=== PATIENT | male | born 1960 | race Caucasian/White ===

== ENCOUNTER 2021-09-29 04:00 | Observation (INO) ==
[2021-09-29] MEDS ORDERED: Ondansetron 4 MG/2 ML VIAL IVP ONE (04:13)
[2021-09-29] MEDS ORDERED: 0.9 % Sodium Chloride 1,000 ML IVC ONE (04:13)
[2021-09-29] MEDS ORDERED: Isovue-370 500 ML BOTTLE IVP ONE (04:41)
[2021-09-29 04:54] LABS: Basophils # 0.1 K/mcL (0.0-0.2); Basophils % 0.7 %; Eosinophils # 0.2 K/mcL (0.0-0.6); Eosinophils % 2.8 %; Hemoglobin 16.1 g/dL (12.9-16.9); Immature Granulocytes % 0.5 % (0-4); Lymphocytes # 1.4 K/mcL (0.6-4.6); Lymphocytes % 18.3 %; Mean Corpuscular HGB Conc 33.5 g/dL (31.6-35.5); Mean Corpuscular Hemoglobin 33.1 pg (28.0-33.3); Mean Corpuscular Volume 98.8 fL (83.0-100.0); Mean Platelet Volume 10.2 fL (9.4-12.4); Monocytes # 0.7 K/mcL (0.0-1.3); Monocytes % 8.9 %; Neutrophils # 5.1 K/mcL (1.6-8.9); Platelet Count 279 K/mcL (140-400); Red Blood Count 4.86 M/mcL (4.19-5.50); Red Cell Distribution Width 12.7 % (11.5-14.5); Segmented Neutrophils % 68.8 %; White Blood Count 7.4 K/mcL (4.3-11.1)
[2021-09-29 05:12] LABS: Alanine Aminotransferase 15 Units/L (7-52); Alkaline Phosphatase 80 Units/L (34-104); Aspartate Amino Transferase 20 Units/L (13-39); BUN/Creatinine Ratio 6 (6-26); Bilirubin,Direct 0.1 mg/dL (0.0-0.2); Bilirubin,Indirect 0.5 mg/dL (0.0-1.0); Bilirubin,Total 0.6 mg/dL (0.3-1.0); Blood Urea Nitrogen 5 mg/dL (8-23); Calcium 9.4 mg/dL (8.6-10.3); Carbon Dioxide 22 mEq/L (23-29); Chloride 105 mEq/L (98-107); Glucose 110 mg/dL (70-105); Osmolality,Calculated 284 (280-300); Potassium 3.5 mEq/L (3.5-5.1); Sodium 138 mEq/L (136-145); Total Protein 7.1 g/dL (6.4-8.9); eGFR For African Americans > 60 (> 60); eGFR For Non-African Americans > 60 (> 60)
[2021-09-29 05:13] LABS: Albumin 4.1 g/dL (3.5-5.7); Albumin/Globulin Ratio 1.4 (1.1-2.2); Lipase 5 Units/L (11-82)
[2021-09-29] MEDS ORDERED: Dicyclomine 20 MG/2 ML AMPUL IM ONE (05:58)
[2021-09-29] MEDS ORDERED: Morphine Sulfate 2 MG/ML SYRINGE IVP ONE (06:12)
[2021-09-29] MEDS ORDERED: Ketorolac 30 MG/ML VIAL IVP PRN (06:12)
[2021-09-29] MEDS ORDERED: Naloxone 0.4 MG/ML INJ IVP PRN (08:37)
[2021-09-29] MEDS ORDERED: Ondansetron ODT 4 MG TAB.RAPDIS SL PRN (08:53)
[2021-09-29] MEDS ORDERED: Baclofen 10 MG TABLET PO PRN (09:52)
[2021-09-29] MEDS ORDERED: Albuterol 2.5 MG/3 ML NEBULIZER IH PRN (09:52)
[2021-09-29] MEDS: Gabapentin 400 MG CAPSULE PO SCH ×3 (12:21→19:49)
[2021-09-29] MEDS: Budesonide/Formoterol 160/4.5 1 PUFF INH IH SCH ×2 (12:21→19:35)
[2021-09-29] MEDS: Sennosides/Docusate Sodium TABLET PO SCH ×2 (12:24→19:50)
[2021-09-29] MEDS ORDERED: *HR* OxyCODONE/APAP 7.5/325 TABLET PO PRN (14:25)
[2021-09-29 15:08] LABS: Bilirubin,Urine Negative (Negative); Blood,Urine Negative (Negative); Clarity,Urine Clear (Clear); Color,Urine Yellow (Yellow); Glucose,Urine (UA) Normal (Normal); Ketones,Urine 20 mg/dL (Negative); Leukocyte Esterase,Urine Negative (Negative); Mucus,Urine Moderate per lpf (None-Few); Nitrite,Urine Negative (Negative); Protein,Urine 30 mg/dL (Neg-Trace); RBC,Urine 0-3 per hpf (0-3); Specific Gravity,Urine > 1.030 (1.010-1.025); Urobilinogen,Urine Normal (Normal); WBC,Urine 0-3 per hpf (0-3)
[2021-09-29] MEDS: *HR* Heparin 5,000 UNIT/ML VIAL SQ SCH ×2 (15:08→19:51)
[2021-09-29] MEDS: Fluticasone Propionate Nasal 50 MCG/SPRAY BOTTLE NS SCH (15:08)
[2021-09-29] MEDS: Nicotine 21 MG PATCH.TD24 TD SCH (15:09)
[2021-09-29] MEDS ORDERED: *HR* Labetalol 20 MG/4 ML SYRINGE IVP ONE (16:06)
[2021-09-29] MEDS: amLODIPine 5 MG TABLET PO SCH (16:16)
[2021-09-29] MEDS: cilostazoL 100 MG TABLET PO SCH (19:49)
[2021-09-29] MEDS ORDERED: traZODone 50 MG TABLET PO SCH (21:00)
[2021-09-29] MEDS ORDERED: Temazepam 15 MG CAPSULE PO SCH (21:00)
[2021-09-30 03:12] LABS: Basophils % 0.6 %; Eosinophils # 0.2 K/mcL (0.0-0.6); Hematocrit 43.9 % (37.5-50.1); Immature Granulocytes % 0.4 % (0-4); Lymphocytes # 1.5 K/mcL (0.6-4.6); Lymphocytes % 27.3 %; Mean Corpuscular HGB Conc 32.8 g/dL (31.6-35.5); Mean Corpuscular Hemoglobin 33.3 pg (28.0-33.3); Mean Corpuscular Volume 101.4 fL (83.0-100.0); Monocytes # 0.5 K/mcL (0.0-1.3); Monocytes % 9.9 %; Neutrophils # 3.2 K/mcL (1.6-8.9); Platelet Count 221 K/mcL (140-400); Red Blood Count 4.33 M/mcL (4.19-5.50); Red Cell Distribution Width 12.5 % (11.5-14.5); Segmented Neutrophils % 58.8 %; White Blood Count 5.4 K/mcL (4.3-11.1)
[2021-09-30 03:13] LABS: Hemoglobin 14.4 g/dL (12.9-16.9)
[2021-09-30 03:29] LABS: Alanine Aminotransferase 12 Units/L (7-52); Albumin 3.4 g/dL (3.5-5.7); Albumin/Globulin Ratio 1.5 (1.1-2.2); Alkaline Phosphatase 63 Units/L (34-104); Aspartate Amino Transferase 18 Units/L (13-39); BUN/Creatinine Ratio 9 (6-26); Bilirubin,Total 0.6 mg/dL (0.3-1.0); Blood Urea Nitrogen 7 mg/dL (8-23); Calcium 8.9 mg/dL (8.6-10.3); Carbon Dioxide 26 mEq/L (23-29); Chloride 107 mEq/L (98-107); Globulin 2.3 g/dL (2.4-3.5); Glucose 84 mg/dL (70-105); Osmolality,Calculated 285 (280-300); Potassium 3.4 mEq/L (3.5-5.1); Sodium 139 mEq/L (136-145); Total Protein 5.7 g/dL (6.4-8.9); eGFR For African Americans > 60 (> 60); eGFR For Non-African Americans > 60 (> 60)
[2021-09-30] MEDS: *HR* Heparin 5,000 UNIT/ML VIAL SQ SCH (04:57)
[2021-09-30] MEDS: Budesonide/Formoterol 160/4.5 1 PUFF INH IH SCH (07:39)
[2021-09-30] MEDS: Gabapentin 400 MG CAPSULE PO SCH (08:20)
[2021-09-30] MEDS: Sennosides/Docusate Sodium TABLET PO SCH (08:20)
[2021-09-30] MEDS: cilostazoL 100 MG TABLET PO SCH (08:20)
[2021-09-30] MEDS: Nicotine 21 MG PATCH.TD24 TD SCH (08:20)
[2021-09-30] MEDS: amLODIPine 5 MG TABLET PO SCH (08:21)
[2021-09-30] MEDS: Fluticasone Propionate Nasal 50 MCG/SPRAY BOTTLE NS SCH (08:21)
[2021-09-30 11:18] VITALS: BP 135/78; PULSE 95; TEMP 98.1; O2SAT 94
== END 2021-09-30 13:31 | disposition home or self-care (01) ==
LOC: EMEROOARM 04:00 → 3BNU 04:00
PROVIDERS: ADMIT Internal Medicine; ATTEND Internal Medicine

== ENCOUNTER 2022-03-07 10:11 | Inpatient (IN) ==
[~2022-03-07 10:11] MED LIST: Famotidine 20 MG/2 ML VIAL IVP ONE
[2022-03-07] MEDS ORDERED: CeFAZolin Syr 2,000MG/20 ML 2,000 MG/20 ML SYRINGE IVPB ONE (10:31)
[2022-03-07] MEDS ORDERED: Acetaminophen IV 1,000 MG/100 ML BAG IVPB ONE (10:44)
[2022-03-07] MEDS ORDERED: Ondansetron 4 MG/2 ML VIAL IVP PRN ×2 (10:44→18:10)
[2022-03-07] MEDS ORDERED: Ringers Solution, Lactated 1,000 ML IVC SCH (10:45)
[2022-03-07] MEDS ORDERED: Albuterol 2.5 MG/3 ML NEBULIZER IH PRN ×2 (10:45→18:10)
[2022-03-07] MEDS ORDERED: Ondansetron 4 MG/2 ML VIAL ONE (11:29)
[2022-03-07] MEDS ORDERED: *HR* HYDROMORPHONE 2 MG/ML VIAL ONE (11:29)
[2022-03-07] MEDS ORDERED: *HR* Rocuronium Bromide 50 MG/5 ML VIAL ONE (11:29)
[2022-03-07] MEDS ORDERED: Lidocaine -MPF 2% 5 ML VIAL ONE (11:29)
[2022-03-07] MEDS ORDERED: *HR* Phenylephrine 10 MG/ML VIAL ONE (11:29)
[2022-03-07] MEDS ORDERED: *HR* Propofol 200 MG/20 ML VIAL IVP ONE (11:29)
[2022-03-07] MEDS ORDERED: *HR* Midazolam HCl 2 MG/2 ML VIAL ONE (11:29)
[2022-03-07] MEDS ORDERED: *HR* Succinylcholine 200 MG/10 ML VIAL IVP ONE (11:29)
[2022-03-07] MEDS ORDERED: *HR* Remifentanil 2 MG VIAL IVP ONE (11:29)
[2022-03-07] MEDS ORDERED: Lidocaine HCL 4 ML Topical Solution (Laryng-O-Jet Kit Sterile Pak) TP ONE (11:29)
[2022-03-07] MEDS ORDERED: Vancomycin 1,000 MG, Sodium Chloride IRRigation 1,000 ML IR ONE (11:55)
[2022-03-07] MEDS ORDERED: Bupivacaine-MPF 0.25% 10 ML VIAL ONE (12:15)
[2022-03-07] MEDS ORDERED: Heparin 1,000 UNITS/500 mL 500 ML ONE (12:15)
[2022-03-07] MEDS ORDERED: Protamine Sulfate 50 MG/5 ML VIAL IVP ONE (12:15)
[2022-03-07] MEDS ORDERED: *HR* Heparin 5,000 UNIT/ML VIAL ONE (12:18)
[2022-03-07] MEDS ORDERED: Sugammadex Sodium 200 MG/2 ML VIAL IV ONE (12:22)
[2022-03-07] MEDS ORDERED: *HR* HYDROmorphone (PF) 1 MG/ML SYRINGE ONE (15:17)
[2022-03-07] MEDS: *HR* FentaNYL (PF) 100 MCG/2 ML VIAL IVP PRN ×4 (15:33→15:53)
[2022-03-07] MEDS ORDERED: Ketorolac 30 MG/ML VIAL IVP ONE (15:52)
[2022-03-07] MEDS ORDERED: *HR* HYDROmorphone (PF) 1 MG/ML SYRINGE IVP ONE (16:12)
[2022-03-07] MEDS ORDERED: *HR* Labetalol 20 MG/4 ML SYRINGE IVP ONE ×2 (16:48→16:50)
[2022-03-07] MEDS ORDERED: *HR* Labetalol 20 MG/4 ML SYRINGE IVP PRN (18:10)
[2022-03-07] MEDS ORDERED: 0.9 % Sodium Chloride 1,000 ML IVC SCH (18:10)
[2022-03-07] MEDS ORDERED: Acetaminophen 325 MG TABLET PO PRN (18:10)
[2022-03-07] MEDS ORDERED: Naloxone 0.4 MG/ML INJ IVP PRN (18:10)
[2022-03-07] MEDS ORDERED: Temazepam 15 MG CAPSULE PO PRN (18:15)
[2022-03-07] MEDS: *HR* OxyCODONE Immed Rel 5 MG TABLET PO PRN (18:20)
[2022-03-07] MEDS: *HR* Metoprolol 5 MG/5 ML VIAL IVP SCH ×2 (18:37→23:51)
[2022-03-07 18:49] LABS: Hematocrit 41.6 % (37.5-50.1); Hemoglobin 13.9 g/dL (12.9-16.9); Mean Corpuscular HGB Conc 33.4 g/dL (31.6-35.5); Mean Corpuscular Hemoglobin 33.6 pg (28.0-33.3); Mean Corpuscular Volume 100.5 fL (83.0-100.0); Mean Platelet Volume 9.6 fL (9.4-12.4); Platelet Count 234 K/mcL (140-400); Red Blood Count 4.14 M/mcL (4.19-5.50); Red Cell Distribution Width 13.2 % (11.5-14.5); White Blood Count 10.1 K/mcL (4.3-11.1)
[2022-03-07 18:57] LABS: Prothrombin Time 10.9 Seconds (9.4-12.1)
[2022-03-07] MEDS: Budesonide/Formoterol 160/4.5 1 PUFF INH IH SCH (20:40)
[2022-03-07] MEDS: Gabapentin 400 MG CAPSULE PO SCH (21:13)
[2022-03-07] MEDS: *HR* HYDROcodone/Acet 5/325 mg TABLET PO PRN (21:16)
[2022-03-07] MEDS: CeFAZolin 2 GM/120 ML BAG IVPB SCH (21:24)
[2022-03-07] MEDS ORDERED: traZODone 50 MG TABLET PO PRN (21:28)
[2022-03-08] MEDS: CeFAZolin 2 GM/120 ML BAG IVPB SCH (04:32)
[2022-03-08] MEDS: *HR* HYDROcodone/Acet 5/325 mg TABLET PO PRN (04:35)
[2022-03-08 05:33] LABS: Basophils % 0.1 %; Hematocrit 37.3 % (37.5-50.1); Hemoglobin 12.6 g/dL (12.9-16.9); Immature Granulocytes % 0.4 % (0-4); Lymphocytes % 11.5 %; Mean Corpuscular HGB Conc 33.8 g/dL (31.6-35.5); Mean Corpuscular Volume 100.5 fL (83.0-100.0); Mean Platelet Volume 9.9 fL (9.4-12.4); Monocytes # 0.7 K/mcL (0.0-1.3); Monocytes % 8.2 %; Neutrophils # 6.7 K/mcL (1.6-8.9); Platelet Count 212 K/mcL (140-400); Red Blood Count 3.71 M/mcL (4.19-5.50); Red Cell Distribution Width 13.2 % (11.5-14.5); Segmented Neutrophils % 79.8 %; White Blood Count 8.4 K/mcL (4.3-11.1)
[2022-03-08] MEDS: *HR* Metoprolol 5 MG/5 ML VIAL IVP SCH (05:40)
[2022-03-08 05:50] LABS: BUN/Creatinine Ratio 16 (6-26); Blood Urea Nitrogen 13 mg/dL (8-23); Calcium 8.7 mg/dL (8.6-10.3); Carbon Dioxide 23 mEq/L (23-29); Chloride 107 mEq/L (98-107); Glucose 103 mg/dL (70-105); Osmolality,Calculated 286 (280-300); Potassium 3.9 mEq/L (3.5-5.1); Sodium 138 mEq/L (136-145)
[2022-03-08] MEDS ORDERED: *HR* Heparin 5,000 UNIT/ML VIAL SQ SCH ×2 (06:00)
[2022-03-08 07:25] VITALS: TEMP 99.1
[2022-03-08] MEDS: Budesonide/Formoterol 160/4.5 1 PUFF INH IH SCH (07:29)
[2022-03-08] MEDS: Gabapentin 400 MG CAPSULE PO SCH (08:42)
[2022-03-08] MEDS: *HR* OxyCODONE Immed Rel 5 MG TABLET PO PRN (08:42)
[2022-03-08] MEDS ORDERED: Ketorolac 30 MG/ML VIAL IVP ONE (09:11)
[2022-03-08 09:26] VITALS: BP 161/71; O2SAT 91
[2022-03-08 09:28] VITALS: PULSE 95
== END 2022-03-08 10:30 | disposition home or self-care (01) | DRG 253 ==
LOC: SAMDAY 10:11 → 2NNU 18:07
PROVIDERS: ADMIT Surgery; ATTEND Surgery